=== PATIENT | female | born 1975 | race Caucasian/White ===

== ENCOUNTER 2018-01-11 12:45 | Outpatient (CLI) | payer BC ==
--- NOTE | 2018-01-11 15:36 | ULT ---
RIGHT UPPER QUADRANT ULTRASOUND: Date: 01-11-18 Comparison: None. History: Right upper quadrant pain. Bloating. Technique: Multiplanar grayscale sonographic imaging of the right upper quadrant obtained. FINDINGS: The pancreas is grossly unremarkable. Distal body and tail of the pancreas are obscured by bowel gas. No focal liver lesion identified. No biliary dilatation is present. Common duct measures 2 mm, withi n normal limits. No gallbladder wall thickening or pericholecystic fluid. No gallstones noted. The irrigation service technician reports a negative Calloway sign. Right kidney measures 9.6 cm in craniocaudal dimension and demonstrates no stone, hydronephrosis or m ass. IMPRESSION: Unremarkable right upper quadrant ultrasound. POS: WILLI
--- NOTE | 2018-01-11 15:47 | ULT ---
TRANSABDOMINAL AND TRANSVAGINAL PELVIC ULTRASOUND: 01/11/18 INDICATION: Family history of ovarian cancer. TECHNIQUE: Multiple barraza scale, color doppler and vascular duplex with spectral analysis was obtained of the pel vis via transabdominal and transvaginal approach. FINDINGS: The uterus measures 11 x 4.5 x 6.3 cm. The endometrial stripe measures 9.7 mm. The right ovary measures 3.5 x 1.5 x 1.8 cm. There is normal flow to the right ovary. The left ovary measures 6.3 x 5.1 x 5.3 cm. There is a 4.2 x 4.9 x 4.2 cm nonvascularized complex cys t within the left adnexa suspicious for hemorrhagic cyst. Small follicles are present within the right ovary. There is a Nabothian cysts within the cervix. No free fluid is evident. IMPRESSION: 1. Hemorrhagic cyst within the left ovary. Follow up examination in six weeks is recommended to document resolution since the cyst is greater than 3.0 cm in size. 2. Nabothian cysts. POS: WILLI
== END 2018-01-11 12:46 | disposition home or self-care (01) ==
LOC: ULT 12:45
PROVIDERS: ATTEND Obstetrics & Gynecology
DX: Z12.31 Encounter for screening mammogram for malignant neoplasm of breast (principal); N83.202 Unspecified ovarian cyst, left side; N88.8 Other specified noninflammatory disorders of cervix uteri; Z80.3 Family history of malignant neoplasm of breast
CPT/HCPCS: 76705; 76856; 77063; 77067

== ENCOUNTER 2019-08-12 06:04 | Day surgery (SDC) | payer BC ==
[2019-08-09 10:08] VITALS: BMI 20.9
[2019-08-09 11:05] LABS: Hemoglobin 13.1 g/dL (12.0-16.0); Mean Corpuscular HGB CONC 32.9 g/dL (32.0-36.0); Mean Corpuscular Hemoglobin 28.9 pg (27.0-31.0); Mean Platelet Volume 8.8 fL (7.4-10.4); Platelet Count 213 thou/uL (130-400); RBC Distribution Width 11.2 % (11.5-14.5); Red Blood Cell (RBC) Count 4.52 mill/uL (4.20-5.40); White Blood Cell (WBC) Count 4.1 thou/uL (4.8-10.8)
[2019-08-09 11:12] LABS: BHCG - Serum Negative (NEGATIVE); Pregs Control Background? CLEAR/WHITE (CLR/WHITE); Pregs Control Bar Appear? YES (CONTROL BAR)
[2019-08-12] MEDS ORDERED: Famotidine/PF 20 mg/2ml Vial ONE (06:28)
[2019-08-12] MEDS ORDERED: Gabapentin 300 MG CAP ONE (06:28)
[2019-08-12] MEDS ORDERED: CeleCOXIB 100 MG CAP ONE (06:28)
[2019-08-12] MEDS ORDERED: Fentanyl 100 MCG/2 ML VIAL ONE (06:48)
--- NOTE | 2019-08-12 06:54 | HP ---
ANTICIPATED DATE OF SURGERY: 08/12/2019. HISTORY OF PRESENT ILLNESS: Ms. Dixon is a 44-year-old white female with family history of ovarian cancer, who is BRCA1- and 2-negative, who has been noted to have a right-sided 6 cm ovarian cyst. There are some internal echoes in this and has been persistent. She had been followed up with serial ultrasounds with persistence of the cyst along with normal CA-125 and also biomarker screen. Due to the findings and also the patient with complaints of heavy menstrual bleeding and some pelvic pain associated with this, she wants to proceed with definitive surgical therapy. PAST MEDICAL HISTORY: PAST SURGICAL HISTORY: Breast augmentation along with diagnostic laparoscopy in the past. ALLERGIES: SHE HAS NO KNOWN DRUG ALLERGIES. SOCIAL HISTORY: She is a nonsmoker. No excessive alcohol use. HEALTH PRACTICE MANAGER HISTORY: As above. Normal Pap smear and HPV screening in December 2016. OB HISTORY: Two spontaneous vaginal deliveries. Healthy children, alive and well. FAMILY HISTORY: Noted ovarian cancer. Malignant tumor of the breast recorded along with diabetes mellitus. CURRENT MEDICATIONS: Bupropion 150 XL daily. PHYSICAL EXAMINATION: VITAL SIGNS: Height 5 feet 8 inches, weight 139 pounds, BMI 21.1. Blood pressure 134/72, pulse 62 and regular, respiratory rate 18, O2 saturation on room air 99%. HEENT: Within normal limits. CHEST: Clear to auscultation. HEART: Regular rate and rhythm. S1 and S2 heart sounds. No murmurs, rubs, or gallops. ABDOMEN: Soft, nontender, nondistended with no palpable masses or hernias. PELVIC: Vulva and vagina had no lesions. Bladder and urethra had no obvious masses or lesions. Vagina had no tenderness. No significant cystocele, rectocele, or abnormal discharge. Cervix had no discharge or cervical motion tenderness. Uterus is normal size, shape, in midline, mobile, nontender. Adnexa had no excessive tenderness. There was fullness on the right side consistent with a right 6-cm ovarian cyst. ASSESSMENT: This is a 44-year-old white female with complex persistent right ovarian cyst. Biomarkers of OVA-1 and CA-125 were normal. The patient with ovarian cancer desiring definitive surgical therapy. PLAN: Plan is to proceed with robotic total laparoscopic hysterectomy with bilateral salpingo-oophorectomy. Risks and benefits of procedure have been discussed in detail. She is set for surgery on 08/12/2019. Job ID: [id number]
[2019-08-12] MEDS ORDERED: Midazolam HCl 2 mg/2 ml Vial ONE (07:25)
[2019-08-12] MEDS ORDERED: Bupivacaine HCl 0.5%/Epinephrine 1:200,000/PF 30 ml Vial ONE (07:40)
[2019-08-12] MEDS ORDERED: Promethazine HCl 25 MG/ML VIAL IM PRN ×2 (08:51→09:40)
[2019-08-12] MEDS ORDERED: Ondansetron HCl/PF 4 MG/2 ML Vial IVP PRN (08:51)
[2019-08-12] MEDS ORDERED: Promethazine HCl 25 MG/ML VIAL SLOW IVP PRN (08:51)
[2019-08-12] MEDS ORDERED: Morphine Sulfate 2 MG/ML SYRINGE SLOW IVP PRN (08:51)
[2019-08-12] MEDS ORDERED: traMADol HCl 50 MG TAB PO PRN ×2 (09:40)
[2019-08-12] MEDS ORDERED: Simethicone Chewable 80 MG TAB PO PRN (09:40)
[2019-08-12] MEDS ORDERED: diphenhydrAMINE 25 MG CAP PO PRN (09:40)
[2019-08-12] MEDS ORDERED: Morphine 4 MG/ML VIAL SLOW IVP PRN (09:40)
[2019-08-12] MEDS ORDERED: Bisacodyl 10 MG SUPP PR PRN (09:40)
[2019-08-12] MEDS ORDERED: Ondansetron PF 4 MG/2 ML Vial IVP PRN (09:40)
[2019-08-12] MEDS ORDERED: Zolpidem Tartrate 5 MG TAB PO PRN (09:40)
[2019-08-12] MEDS ORDERED: Estradiol 0.05mg/24 Hour Patch (Weekly) TD SCH (14:00)
[2019-08-12] MEDS: Sodium Chloride 0.9% 1,000 ML IV SCH ×2 (14:07→18:31)
[2019-08-12] MEDS: Acetaminophen 1,000 MG in Premix Bag 1 BAG IVPB SCH ×3 (15:11→20:39)
[2019-08-12] MEDS: Ketorolac Tromethamine 30 MG/ML VIAL IVP SCH ×4 (15:12→20:40)
--- NOTE | 2019-08-12 15:52 | OP ---
DATE OF PROCEDURE: 08/12/2019 ;PREOPERATIVE DIAGNOSES: 1. A 44-year-old white female with persistent 6 cm complex right ovarian cyst. 2. Family history of ovarian cancer. 3. Normal OVA1 and CA-125 tumor markers. 4. Dysmenorrhea, intermittent pelvic pain. POSTOPERATIVE DIAGNOSIS: 1. A 44-year-old white female with persistent 6 cm complex right ovarian cyst. 2. Family history of ovarian cancer. 3. Normal OVA1 and CA-125 tumor markers. 4. Dysmenorrhea, intermittent pelvic pain. 5. 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 PROCEDURES PERFORMED: 1. Robotic total laparoscopic hysterectomy and bilateral salpingo-oophorectomy. 2. Lysis of adhesions. MAPPING SPECIALIST SURGEON: OMER Baird. ANESTHESIA: General endotracheal. ESTIMATED BLOOD LOSS: 25 mL. COMPLICATIONS: None. COUNTS: Correct x2. PATHOLOGY: Uterus, cervix, bilateral tubes and ovaries. FINDINGS: 1. Scattered endometriotic powder burn lesions noted in the anterior cul-de-sac and over surface of the left ovary and peritoneal surfaces. 2. Right hemorrhagic appearing ovarian cyst with some chocolate cyst expulsion noted consistent with endometrioma changes with some dense adhesions to the right pelvic sidewall, posterior cul-de-sac, status post adhesiolysis. 3. Normal-appearing liver and gallbladder and upper abdomen. 4. Bladder was watertight to fluid distention over 300 mL pre and post procedure with clear urine draining. DISPOSITION: Recovery room, stable. DESCRIPTION OF PROCEDURE: The patient previously received informed consent in regard to surgery. She was taken back to the operating room, where she received a general endotracheal anesthetic agent without complications. She was placed in dorsal lithotomy position and prepped and draped in usual sterile fashion. Hill catheter was placed at this time. A side-arm speculum was placed in the vagina. The uterus sounded to 10 cm. A size 10 cm ALBERT uterine manipulator with a 4.0 cm cervical cup was placed. Tenaculum and speculum were then removed. Attention was then turned to the abdomen, where perspective trocar sites were infiltrated with 0.5% Marcaine with epinephrine. A 12 mm umbilical incision was made. Veress needle was entered into the peritoneal cavity. Abdomen was insufflated after the patient's pressure was noted to be less than 5 mm. Approximately, 4.5 L of carbon dioxide gas were utilized to a patient's pressure of 15. Veress needle was then removed and a 12 mm trocar was then placed. The robotic laparoscope was then placed through the trocar sleeve confirming proper entry. The patient was placed in Trendelenburg position. Additional bilateral lower quadrant 8 mm robotic trocars were placed along with the right upper quadrant 11 mm port. The robot was then docked at this time and I proceeded to break scrub and carry out the procedure from the operative console while my assistants remained at the bedside. The pelvis was inspected with the previously mentioned findings. Uterus was elevated by my facilities maintenance assistant. The right fallopian tube was grasped by my facilities maintenance assistant and we observed the course of the ureter dropped down the pelvic brim. Appeared to be below the area for the adhesions of the right adnexal structures. The IP ligament was then coagulated and serially dissecting the mass medially from the pelvic sidewall. The ureter remained inferior to this operative site. We then continued to dissect both sharply and bluntly developing a plane and the adhesive capsules were then dissected away from the left pelvic sidewall with both sharp and blunt dissections with bipolar fenestrated cautery and monopolar scissors and a hydrodissection. Once we freed the right adnexal structure adequately, I then coagulated the broad ligament hugging close to the uterine specimen until the right round ligament was reached. It was coagulated and transected, and this again developed another pedicle plane that was a freeing area that we could go underneath ovarian cystic structure. Some chocolaty cyst type material oozed out from the cyst consistent with endometrioma. This was coagulated. The round ligament remnants were then coagulated and transected meeting the lateral to the cyst, freeing the cyst from the pelvic sidewall. The left ovary and tube were then isolated. The tube was grasped by my facilities maintenance assistant. The IP ligament was freed. It was coagulated with bipolar fenestrated cautery, hugging close to the ovary and transected. The remainder of the broad ligament was coagulated with bipolar fenestrated cautery until the left round ligament was reached. It was coagulated and transected. The anterior leaf of the broad ligament again was reached. It was then opened and the anterior leaf of the vesicouterine peritoneum was dissected both sharply and bluntly. The right and left uterine vessels were also skeletonized and coagulated in the internal cervical os region. The bladder was then taken down in layering technique and the folds of the vesicouterine peritoneum were dissected, past the cervical vaginal angle. This was carried and brought around to the right side, where the previous incised round ligament was then met. Posteriorly, there were adhesions of the posterior cul-de-sac and I was able to identify the location of the left uterosacral ligament and then developed the plane as we flexed the uterus forward above the peritoneum and incised with monopolar scissors and irrigation and blunt retraction, was able to dissect the posterior cul-de-sac free from the backside of the cervix. Once this was accomplished, the uterine vessels on the right side were further skeletonized, dropping the pelvic sidewall away from the uterine specimen. I then coagulated the internal cervical os region, the uterine vessels on the right side. The bladder was then distended prior to the anterior colpotomy and was noted to be well below the anticipated colpotomy incision site. The monopolar scissors on [facility] were utilized to transect the colpotomy starting from the 12 to 3 and 12 to 9 o'clock positions. The uterine vessels were coagulated inside the cup for hemostasis security, then, this was carried around the backside from 9 to 6 and then completed from 6 to 3. The specimen was then brought into the vagina by my assistants. The vaginal cuff was noted to be hemostatic. A Alexis needle parts delivery driver was exchanged for the monopolar scissors, and then, we closed the cuff in full-thickness closure starting from the right angle to the left angle back towards the midline. The excess suture and needle were then trimmed and removed by my facilities maintenance assistant. The pelvis was then irrigated and suctioned. Hemostasis on the pedicle sites was confirmed. Again, bilateral ureteral peristalsis were visualized and the portion of the ureter appeared to be inferior and lateral to the operative sites. The bladder was draining clear urine. The robot was then undocked. I then rescrubbed and we closed the fascial defect in the umbilicus with a [id number] stitch of 0 Vicryl with approximation of the fascia. The remainder of the trocar sites were closed with 4-0 Monocryl suture and Dermabond. The vaginal cuff was inspected with a sponge stick and hemostasis was confirmed. The patient was awakened from anesthesia and transferred to recovery room in stable condition. Job ID: [id number]
[2019-08-12] MEDS ORDERED: Ketorolac Tromethamine 30 MG/ML VIAL ONE (16:17)
[2019-08-12] MEDS ORDERED: Rocuronium Bromide 10 MG/ML (10ML VIAL) ONE (16:17)
[2019-08-12] MEDS ORDERED: Glycopyrrolate 0.2 MG/ML 5 ML SYRINGE ONE ×2 (16:17)
[2019-08-12] MEDS ORDERED: ePHEDrine 50 MG/ML VIAL ONE (16:17)
[2019-08-12] MEDS ORDERED: Lidocaine 1% PF 5 ML VIAL ONE (16:17)
[2019-08-12] MEDS ORDERED: Ondansetron PF 4 MG/2 ML Vial ONE (16:17)
[2019-08-12] MEDS ORDERED: PROPOFOL 200 MG/20 ML VIAL ONE (16:17)
[2019-08-12] MEDS ORDERED: Dexamethasone 20 MG/5 ML VIAL ONE (16:17)
[2019-08-13] MEDS: Sodium Chloride 0.9% 1,000 ML IV SCH (03:25)
[2019-08-13] MEDS: Acetaminophen 1,000 MG in Premix Bag 1 BAG IVPB SCH (03:26)
[2019-08-13] MEDS ORDERED: Ibuprofen 800 MG TAB PO SCH (06:00)
[2019-08-13 06:01] LABS: Hemoglobin 10.7 g/dL (12.0-16.0); Mean Corpuscular HGB CONC 30.5 g/dL (32.0-36.0); Mean Corpuscular Hemoglobin 26.7 pg (27.0-31.0); Mean Corpuscular Volume 87.7 fL (78.0-98.0); Mean Platelet Volume 8.9 fL (7.4-10.4); Platelet Count 178 thou/uL (130-400); RBC Distribution Width 11.3 % (11.5-14.5); Red Blood Cell (RBC) Count 4.02 mill/uL (4.20-5.40); White Blood Cell (WBC) Count 7.5 thou/uL (4.8-10.8)
[2019-08-13 08:00] VITALS: BP 113/63; TEMP 98.8
--- NOTE | 2019-08-13 08:08 | PDOC.EVN ---
Event Note - Event Note Event Note: Tolerating diet. Ambulating and voiding well. Goo d pain control. AFVSS HCT 35.2 ABD soft and active bowel sounds. Trochar sites clean and dry A/P Post op day 1 doing well after robotic tlh/bso. Discharge home. pathology pending. Fpollow up 2 and 6 weeks.
[2019-08-13] MEDS ORDERED: Bupropion 150 MG XL TAB PO SCH (09:00)
[2019-08-13] MEDS ORDERED: Multivit, Therapeutic 1 TAB PO SCH (09:00)
--- NOTE | 2019-08-13 12:49 | DIS ---
DATE OF ADMISSION: 08/12/2019 DATE OF DISCHARGE: 08/13/2019 DATE OF SURGERY: 08/12/2019. DIAGNOSES: 1. Pelvic pain. 2. Pelvic endometriosis with persistent right 6-cm ovarian cyst. 3. Family history of ovarian cancer. 4. Dysmenorrhea. PROCEDURE PERFORMED: Robotic total laparoscopic hysterectomy and bilateral salpingo-oophorectomy. SUMMARY OF HOSPITAL COURSE: Ms. Dixon is a 44-year-old white female, who had some issues with pelvic pain, was noted to have a persistent 6-cm complex right adnexal cyst on ultrasound along with symptoms of dysmenorrhea. She has a family history of ovarian cancer in her mother. She had low-risk tumor markers including the oval one screening biomarker, but we proceeded to carry out definitive surgical therapy. At the time of surgery, it appears she has pelvic endometriosis. Pathology is pending at the time of this dictation. She underwent a TLH-BSO without complications and has done well postoperatively. Hematocrit is 35.2%. Vital signs were stable. She is ambulating, voiding, and tolerating regular diet without difficulty. Discharged the morning of postop day #1 with discharge medications [id number] ibuprofen as directed with tramadol 50 mg q.6 hours p.r.n. pain, Minivelle-Dot estradiol patch 0.05 mg prescription was also given. She has a followup in 2 and 6 weeks and Pathology will be followed up the next day or two when available. Job ID: [id number]
== END 2019-08-13 09:28 | disposition home or self-care (01) ==
LOC: SDC 06:04 → EDSTATUS 09:30 → 3SE 09:39 → SDC 08-13 09:28
PROVIDERS: ATTEND Obstetrics & Gynecology
PROC: 0UT24ZZ Resection of Bilateral Ovaries, Percutaneous Endoscopic Approach (ICD-10-PCS; principal; 2019-08-12)
PROC: 0UT74ZZ Resection of Bilateral Fallopian Tubes, Percutaneous Endoscopic Approach (ICD-10-PCS; principal; 2019-08-12)
PROC: 0UT94ZZ Resection of Uterus, Percutaneous Endoscopic Approach (ICD-10-PCS; principal; 2019-08-12)
DX: N83.02 Follicular cyst of left ovary (principal); N83.01 Follicular cyst of right ovary; N83.8 Other noninflammatory disorders of ovary, fallopian tube and broad ligament; N80.1 Endometriosis of ovary; N80.3 Endometriosis of pelvic peritoneum; N80.8 Other endometriosis; Z80.41 Family history of malignant neoplasm of ovary; Z79.899 Other long term (current) drug therapy; Z91.011 Allergy to milk products
CPT/HCPCS: 36415; 84703; 85027; 86850; 86900; 86901; 88307; J0131; J0670; J0690; J1885; J2250; J3010; S0028